=== PATIENT | female | born 1955 | race Caucasian/White ===

== ENCOUNTER → 2025-01-23 09:14 | Outpatient (REF) | payer OTHER, SELFPAY | LOC: RAD 09:14 | PROVIDERS: ATTENDING PHYSICIAN Internal Medicine Hematology & Oncology; FAMILY PHYSICIAN Family Medicine | DX: C50.919 Malignant neoplasm of unspecified site of unspecified female breast (principal); Z79.811 Long term (current) use of aromatase inhibitors; R63.4 Abnormal weight loss | CPT/HCPCS: 71260; 74177; Q9967 ==